=== PATIENT | female | born 1955 | race Hispanic/Latino ===

== ENCOUNTER 2018-02-26 09:09 | Day surgery (SDC) | payer OTHER ==
[~2018-02-26] VITALS: Ht 149.9 cm; Wt 55.9 kg
[2018-02-26 09:26] VITALS: BP 125/59
[2018-02-26] MEDS ORDERED: SODIUM CHLORIDE 0.9% 1000ML 1,000 ML IV ONE (10:09)
[2018-02-26] MEDS ORDERED: PROPOFOL 10 MG/ML 20ML VIAL IV ONE (10:19)
[2018-02-26 10:41] VITALS: BP 84/43
[2018-02-26 10:52] VITALS: BP 84/43
[2018-02-26 11:11] VITALS: BP 106/58
== END 2018-02-26 11:20 ==
LOC: DAH 09:09 → ENDO 09:09
PROVIDERS: ATTEND Internal Medicine Gastroenterology
DX: Z12.11 Encounter for screening for malignant neoplasm of colon (principal); K62.89 Other specified diseases of anus and rectum; Z68.37 Body mass index [BMI] 37.0-37.9, adult; Z86.010 Personal history of colon polyps; Z98.890 Other specified postprocedural states
CPT/HCPCS: 45380; 88305; A4606; J2704; J7030